=== PATIENT | female | born 1990 | race Caucasian/White ===

== ENCOUNTER 2018-09-23 09:10 | Observation (INO) ==
[~2018-09-23 09:10] MED LIST: Lidocaine 1%/Epinephrine 1:100,000 Inj 20 ML Vial ONE
[2018-09-23] MEDS ORDERED: Chlorhexidine Gluconate 2% 1 Pack (2 Cloths) TOPICAL ONE (09:45)
[2018-09-23] MEDS ORDERED: Metoprolol Tartrate 25 MG Tablet PO ONE (09:45)
[2018-09-23] MEDS ORDERED: Clindamycin 600 mg/NS Premix 600 MG/50 ML PIGGYBACK IV.SIG ONE (09:45)
[2018-09-23] MEDS ORDERED: Sodium Chlor 0.9% Inj 500 ML IV.SIG SCH (10:00)
[2018-09-23] MEDS ORDERED: Famotidine PF Inj 20 MG/2 ML Vial ONE (11:31)
[2018-09-23] MEDS ORDERED: fentaNYL Citrate Inj 100 MCG/2 ML Ampul ONE (11:33)
[2018-09-23] MEDS ORDERED: Morphine Inj 4 MG/ML Vial ONE (12:54)
--- NOTE | 2018-09-23 13:11 | MP ---
cc: Roland Byers MD DATE OF OPERATION: 09/23/2018 DATE OF OPERATION: 09/23/2018 SURGEON: Roland Byers MD PREOPERATIVE DIAGNOSES: 1. Nasal airway obstruction. 2. Nasal septal deviation. 3. Hypertrophy of inferior turbinates. POSTOPERATIVE DIAGNOSES: 1. Nasal airway obstruction. 2. Nasal septal deviation. 3. Hypertrophy of inferior turbinates. PROCEDURE PERFORMED: 1. Open repair nasal septal fracture. 2. Bilateral submucosal resection of inferior turbinates. INDICATIONS: Documented in the history and physical. DETAILS OF PROCEDURE: The patient was taken to OR #2 and placed in the supine position. Following induction of general anesthesia and intubation, the nose was packed bilaterally with cotton pledgets saturated in 0.05% oxymetazoline. The septal mucosa and inferior turbinates were injected with a total of 6 mL of 1% Xylocaine with epinephrine 1:100,000. She was then prepped and draped for surgery. The packing was removed and a hemitransfixed incision was made in the left nasal vestibule. Through this incision, the mucosa of the septum was elevated bilaterally as far as the junction of the bony and cartilaginous septum. This exposed an end-on view of the quadrangular cartilage, which showed comminuted fracture fragments extending into the nasal airway, left much greater than right. A cumulative area of 2 x 2 cm was removed in a piecemeal fashion, preserving 1.5 cm dorsal and caudal cartilaginous struts. When this was completed mucosa was elevated from the bony septum and the maxillary crest. These were removed using [place] forceps on the bony septum and a 6 mm Eagle chisel on the maxillary crest. The incision was then closed with a running suture of 4-0 chromic and the mucosal layers of septum were approximated to each other with a quilting stitch of 4-0 plain gut. The inferior turbinates were then fractured out medially and stab incisions were opened along their inferior surfaces. Through these incisions the submucosal soft tissue was reduced using a curette and preserving the conchal bone. The incisions were then cauterized using the suction Bovie at 35 fregoso and the remnants of the inferior turbinates were then relateralized to the lateral nasal wall. The nose was packed with Merocel tampons coated in mupirocin ointment and the procedure was terminated. The patient was reversed from anesthesia and taken to recovery in good condition. There were no complications. Blood loss was 80 mL. MD JANET Haney/ , 12:29 PM , 12:38 PM
[2018-09-23] MEDS ORDERED: Clindamycin 600 mg/NS Premix 600 MG/50 ML PIGGYBACK IV.SIG SCH ×2 (14:00→20:00)
[2018-09-24] MEDS ORDERED: Topiramate 25 MG Tablet PO SCH ×2 (09:00→21:00)
[2018-09-24] MEDS ORDERED: Montelukast 10 MG Tablet PO SCH (09:00)
[2018-09-24 09:33] VITALS: BP 120/67; PULSE 92; TEMP 97.4
[2018-09-24 10:01] VITALS: RESP 18
[2018-09-24 15:56] VITALS: O2SAT 97
== END 2018-09-24 10:09 | disposition home or self-care (01) ==
LOC: PH3 09:10 → PHSDC 09:10
PROVIDERS: ADMIT Otolaryngology; ATTEND Otolaryngology